=== PATIENT | male | born 1950 | race Caucasian/White ===

== ENCOUNTER 2023-10-23 18:30 | Inpatient (IN) | payer BC, MEDICARE ==
[~2023-10-23 18:30] MED LIST: HEPARIN SOD,PORK IN 0.45% NACL 250 ML IV ONE; HEPARIN SODIUM 1,000 UN/ML (10ML VL) ONE; HEPARIN SODIUM,PORCINE 10,000 UNIT/ML 1 ML VIAL ONE; HEPARIN SODIUM,PORCINE 5,000 UNIT/ML 1 ML VIAL ONE; SODIUM CHLORIDE 0.9% 1,000 ML BAG ONE; SODIUM CHLORIDE 0.9% 250 ML BAG ONE; SODIUM CHLORIDE 0.9% 500 ML BAG ONE
[2023-10-23] MEDS ORDERED: MONTELUKAST 10 MG TAB ONE (20:07)
[2023-10-23] MEDS ORDERED: FAMOTIDINE 20 MG TAB ONE (20:07)
[2023-10-23] MEDS ORDERED: amLODIPine 5 MG TAB ONE (20:07)
[2023-10-24] MEDS ORDERED: ATORVASTATIN 80 MG TAB ONE ×2 (06:35→19:46)
[2023-10-24] MEDS ORDERED: LOSARTAN 50 MG TAB ONE (06:35)
[2023-10-24] MEDS ORDERED: amLODIPine 5 MG TAB ONE (06:36)
[2023-10-24] MEDS ORDERED: MULTIVITAMINS, THERA 1 EACH TAB ONE (10:41)
[2023-10-24] MEDS ORDERED: LORATADINE 10 MG TAB ONE (10:41)
[2023-10-24] MEDS ORDERED: ASPIRIN 325 MG TAB ONE (12:16)
[2023-10-24] MEDS ORDERED: VERAPAMIL 2.5 MG/ML 2 ML AMP ONE (12:35)
[2023-10-24] MEDS ORDERED: LIDOCAINE 1% INJ 10MG/ML (20 ML MDV) ONE (12:35)
[2023-10-24] MEDS ORDERED: fentaNYL (PF) 50 MCG/ML 2 ML AMP ONE (12:35)
[2023-10-24] MEDS ORDERED: HEPARIN SODIUM 1,000 UN/ML (10ML VL) ONE (12:35)
[2023-10-24] MEDS ORDERED: MIDAZOLAM 2 MG/2 ML VIAL ONE (12:35)
[2023-10-24] MEDS: IOPAMIDOL-370 200ML BTL INJ ONE (13:31)
[2023-10-24] MEDS ORDERED: CLOPIDOGREL 75 MG TAB ONE ×2 (13:33→13:35)
[2023-10-24] MEDS ORDERED: PANTOPRAZOLE 40 MG TABLET PO ONE (16:16)
[2023-10-24] MEDS ORDERED: MONTELUKAST 10 MG TAB ONE (19:45)
[2023-10-24] MEDS ORDERED: FAMOTIDINE 20 MG TAB ONE (19:45)
[2023-10-24] MEDS ORDERED: amLODIPine 10 MG TAB ONE (19:46)
[2023-10-24] MEDS ORDERED: TRIAMTERENE-HCTZ 37.5-25MG 1 EACH CAP ONE (23:59)
[2023-10-25] MEDS ORDERED: LOSARTAN 50 MG TAB ONE (07:44)
[2023-10-25] MEDS ORDERED: PANTOPRAZOLE 40 MG TABLET PO ONE (07:45)
[2023-10-25] MEDS ORDERED: LORATADINE 10 MG TAB ONE ×2 (07:45→09:57)
[2023-10-25] MEDS ORDERED: ASPIRIN 81 MG ONE (07:45)
[2023-10-25] MEDS ORDERED: MULTIVITAMINS, THERA 1 EACH TAB ONE (07:45)
[2023-10-25] MEDS ORDERED: CLOPIDOGREL 75 MG TAB ONE (07:45)
[2023-10-25] MEDS ORDERED: TRIAMTERENE-HCTZ 37.5-25MG 1 EACH CAP ONE (13:00)
--- NOTE | 2023-11-23 11:50 | CA ---
Transthoracic Echo Report Name: Reymundo Bearden Age: 73 Gender: M : 1950 Exam Date: 10/23/2023 17:14 Exam Location: [facility] Ht (in): 69 Wt (lb): 180 Ordering Physician: Attending/Referring Phys: Director Of Assisted Living Marcelina Simon RDCS Procedure CPT: Indications: Cardiac Hx: Technical Quality: Good Contrast 1: Total Dose (mL): Contrast 2: Total Dose (mL): MEASUREMENTS (Male / Female) Normal Values 2D ECHO LV Diastolic Diameter PLAX 5.1 cm 4.2 - 5.9 / 3.9 - 5.3 cm LV Systolic Diameter PLAX 3.7 cm IVS Diastolic Thickness 1.0 cm 0.6 - 1.0 / 0.6 - 0.9 cm LVPW Diastolic Thickness 1.2 cm 0.6 - 1.0 / 0.6 - 0.9 cm LV Relative Wall Thickness 0.4 LVOT Diameter 2.1 cm LV Diastolic Volume MOD BP 145.0 cm??? 67 - 155 / 56 - 104 cm??? LV Systolic Volume MOD BP 57.0 cm??? 22 - 58 / 19 - 49 cm??? LV Ejection Fraction MOD BP 60.7 % >= 55 % LV Cardiac Index MOD BP 2367.8 cm???/min???m??? LV Diastolic Volume MOD 4C 147.5 cm??? LV Systolic Volume MOD 4C 60.7 cm??? LV Ejection Fraction MOD 4C 58.9 % LV Cardiac Index MOD 4C 2335.5 cm???/min???m??? LV Diastolic Length 4C 8.8 cm LV Systolic Length 4C 7.6 cm LV Diastolic Volume MOD 2C 133.1 cm??? LV Systolic Volume MOD 2C 50.5 cm??? LV Ejection Fraction MOD 2C 62.1 % LV Cardiac Index MOD 2C 2222.1 cm???/min???m??? LV Diastolic Length 2C 8.1 cm LV Systolic Length 2C 7.1 cm LA Volume 62.6 cm??? 18 - 58 / 22 - 52 cm??? LA Volume Index 31.2 cm???/m??? 16 - 28 cm???/m??? Ascending Aorta Diameter 3.0 cm DOPPLER AV Peak Velocity 159.2 cm/s AV Peak Gradient 10.1 mmHg AV Mean Velocity 95.8 cm/s AV Mean Gradient 4.4 mmHg AV Velocity Time Integral 30.1 cm LVOT Peak Velocity 98.3 cm/s LVOT Peak Gradient 3.9 mmHg LVOT Velocity Time Integral 21.4 cm LVOT Stroke Volume 70.9 cm??? LVOT Stroke Volume Index 35.9 ml/m??? LVOT Cardiac Index 1907.6 cm???/min???m??? AV Area Cont Eq vti 2.4 cm??? AV Area Cont Eq pk 2.1 cm??? MV Area PHT 2.9 cm??? Mitral E Point Velocity 59.6 cm/s Mitral A Point Velocity 23.2 cm/s Mitral E to A Ratio 2.6 MV Deceleration Time 263.7 ms TR Peak Velocity 263.2 cm/s TR Peak Gradient 27.7 mmHg Right Atrial Pressure 5.0 mmHg Pulmonary Artery Systolic Pressu 32.7 mmHg Right Ventricular Systolic Press 32.7 mmHg PV Peak Velocity 72.9 cm/s PV Peak Gradient 2.1 mmHg FINDINGS Left Ventricle Left ventricular ejection fraction is estimated at 55-60 %. Left ventricular cavity size normal. Left ventricular wall thickness normal. No obvious regional wall motion abnormalities. Right Ventricle Right ventricular dilatation with normal function. Right ventricular systolic pressure within normal limits. Right Atrium Right atrial dilatation. Left Atrium Mildly increased left atrial volume. Mitral Valve Structurally normal mitral valve. No evidence for mitral valve prolapse. No mitral stenosis.[id number] mitral regurgitation. Mitral annular calcification. Aortic Valve Trileaflet aortic valve. No aortic valve stenosis or regurgitation. Tricuspid Valve Structurally normal tricuspid valve. No tricuspid stenosis. Mild tricuspid regurgitation. Pulmonic Valve Structurally normal pulmonic valve. No pulmonic stenosis. Trace pulmonic regurgitation. Pericardium No pericardial effusion. Aorta Normal size aortic root and proximal ascending aorta. CONCLUSIONS 1. Normal left ventricular size and systolic function 2. [id number] mitral regurgitation with mild tricuspid regurgitation Previewed by: Dr. Kymberly Gonzalez MD (Electronically Signed) Final Date: 25 October 2023 11:21
--- NOTE | 2023-11-24 06:08 | XR ---
Patient Reymundo Bearden ID [id number] Order # EXAMINATION TYPE: XR chest 2V DATE OF EXAM: 10/23/2023 COMPARISON: No comparison available on downtime PACS. INDICATION: Chest pain TECHNIQUE: Frontal and lateral views of the chest are obtained. FINDINGS: The heart size is normal. The pulmonary vasculature is normal. The lungs are clear. IMPRESSION: 1. No acute pulmonary process.
== END 2023-10-25 13:55 | disposition home or self-care (01) | DRG 281 ==
LOC: 3SCARD 18:30
PROVIDERS: ADMIT Internal Medicine; ATTEND Internal Medicine
PROC: B2111ZZ Fluoroscopy of Multiple Coronary Arteries using Low Osmolar Contrast (ICD-10-PCS; 2023-10-24)
PROC: 4A023N7 Measurement of Cardiac Sampling and Pressure, Left Heart, Percutaneous Approach (ICD-10-PCS; principal; 2023-10-24 13:09)
DX: I21.4 Non-ST elevation (NSTEMI) myocardial infarction (principal); I48.92 Unspecified atrial flutter; I25.10 Atherosclerotic heart disease of native coronary artery without angina pectoris; Z86.79 Personal history of other diseases of the circulatory system; I10 Essential (primary) hypertension; I48.0 Paroxysmal atrial fibrillation; R00.1 Bradycardia, unspecified; K21.9 Gastro-esophageal reflux disease without esophagitis; J30.9 Allergic rhinitis, unspecified; E78.2 Mixed hyperlipidemia; Z88.8 Allergy status to other drugs, medicaments and biological substances; Z79.01 Long term (current) use of anticoagulants
CPT/HCPCS: 71046; 93306; 93458; 99285

== ENCOUNTER → 2023-11-13 | Outpatient (CLI) | payer MEDICARE ==
--- NOTE | 2023-11-13 09:48 | MR ---
EXAMINATION TYPE: MR Prostate wo/w con DATE OF EXAM: 11/13/2023 9:38 AM COMPARISON: None. CLINICAL INDICATION: Male, 73 years old with history of N40.0 PROSTATE W/WO; elevated psa, enlarged p rostate TECHNIQUE: Multi-planar, multi-sequence imaging of the pelvis is performed prior to and following the uncomplicated administration of bolus intravenous gadolinium. CONTRAST: 8 Gadavist Interpretive Criteria: PI-RADS v2.1 SERUM PSA: 5.27 02-03-23, 4.56 08-23-23 SURGICAL PATHOLOGY: No data available. FINDINGS: Prostatic dimensions: 5.9 x 6.0 x 4.2 cm. Ellipsoid Volume:77.85 (PSA density=0.06 ng/mL/mL) CENTRAL GLAND (Central and Transition Zones/CZ+TZ): Multiple bilateral, heterogenous appearing hypertrophic stromal nodules, without suspicious lesion. ( PI-RADS 2) PERIPHERAL ZONE (PZ): Limited evaluation due to susceptibility artifact from right hip arthroplasty. Diffusion-weighted deanna ging is nondiagnostic. No suspicious areas on T2-weighted imaging.(PI-RADS 2) SEMINAL VESICLES (SV): Symmetric and unremarkable. PERIPROSTATIC TISSUES: Unremarkable. LYMPH NODES: No enlarged pelvic lymph node. REMAINING PELVIS: Bladder wall is within normal limits given distention. No abnormal free or organized intrapelvic fluid collection. No pathologic bowel dilation or mural thickening. No hernia visualized Left epididymal cyst. OSSEOUS STRUCTURES: No suspicious osseous abnormality. IMPRESSION: 1. Limited evaluation secondary to hip arthroplasty. No specific features for high-risk prostate canc er. Maximum PI-RADS score: 2. 2. Moderate BPH, estimated gland volume 77.85 mL. 3. No suspicious osseous lesion. No lymphadenopathy. No evidence of prostate adenocarcinoma involving the periprostatic tissues.
== END | disposition home or self-care (01) ==
LOC: RADMRIMAIN 08:13
PROVIDERS: ATTEND Internal Medicine
DX: N40.0 Benign prostatic hyperplasia without lower urinary tract symptoms
CPT/HCPCS: 72197

== ENCOUNTER → 2023-11-22 | Outpatient (CLI) | payer MEDICARE ==
--- NOTE | 2023-11-22 22:18 | US ---
EXAMINATION TYPE: US venous doppler duplex LE DATE OF EXAM: 11/22/2023 4:08 PM COMPARISON: NONE CLINICAL INDICATION: Male, 73 years old with history of Z91.81 STATUS POST FALL; Patient states he fe ll down stairs x 2 weeks ago. On two different types of blood thinners. Bruising. No redness or swel ling. SIDE PERFORMED: Bilateral TECHNIQUE: The lower extremity deep venous system is examined utilizing real time linear array sonog ashish with graded compression, doppler sonography and color-flow sonography. VESSELS IMAGED: Common Femoral Vein Deep Femoral Vein Greater Saphenous Vein * Femoral Vein Popliteal Vein Small Saphenous Vein * Proximal Calf Veins (* superficial vessels) Right Leg: Negative for DVT Left Leg: Negative for DVT IMPRESSION: Bilateral lower extremity ultrasound negative for deep venous thrombosis. [facility], , 11/22/2023 10:16 PM
== END | disposition home or self-care (01) ==
LOC: RADUSWWP 15:43
PROVIDERS: ATTEND Internal Medicine
DX: Z91.81 History of falling
CPT/HCPCS: 93970